=== PATIENT | female | born 1995 | race Caucasian/White ===

== ENCOUNTER 2016-12-19 20:49 | Emergency (ER) | payer MEDICAID, OTHER ==
[~2016-12-19] VITALS: Ht 147.3 cm; Wt 69.0 kg
[2016-12-19 20:51] VITALS: Ht 147.3 cm; Wt 69.0 kg
[2016-12-19] MEDS ORDERED: SOD CHLORIDE 0.9% 1,000 ML IV STA (23:28)
[2016-12-19] MEDS ORDERED: ONDANSETRON 4 MG INJ IV STA (23:28)
--- NOTE | 2016-12-19 23:54 | ERD ---
ER Documentation Chief Complaint Date/Time DATE: 12/19/16 TIME: 23:51 Chief Complaint pt reports 8 weeks preg and vomiting x 3 days HPI 21-year-old female presents in emergency department for complaints of vomiting episodes and diarrhea for 3 days. Patient is complaining of pelvic pain and cramping pain 4/10 scale, accompanying the episodes of vomiting and diarrhea. Patient had 3 episodes of vomiting 3 episodes of diarrhea. Patient does not have any blood in stool.. Patient did not have any vaginal bleeding. Patient is 3 para 1 1. Patient is approximately 8 weeks . Patient denies any hematuria or dysuria. ROS All systems reviewed and are negative except as per history of present illness. Medications Home Meds Active Scripts Cephalexin* (Keflex*) 500 Mg Capsule, 500 MG PO QID for 10 Days, CAP Prov:TOSHA LLOYD NP 12/20/16 Acetaminophen* (Tylophen*) 500 Mg Capsule, 1 CAP PO Q6H Y for PAIN AND OR ELEVATED TEMP, #20 CAP Prov:TOSHA LLOYD NP 12/20/16 Ondansetron (Ondansetron Odt) 4 Mg Tab.rapdis, 4 MG PO Q8 Y for NAUSEA AND/OR VOMITING, #30 TAB Prov:TOSHA LLOYD NP 12/20/16 Reported Medications [none] Unknown Strength No Conflict Check 12/19/16 Allergies Allergies: Coded Allergies: No Known Allergy (Verified Allergy, Unknown, NONE, 02/14/09) PMhx/Soc Medical and Surgical Hx: pt denies Medical Hx, pt denies Surgical Hx Hx Alcohol Use: No Hx Substance Use: No Hx Tobacco Use: No Smoking Status: Never smoker FmHx Family History: No coronary disease, No diabetes, No other Physical Exam Vitals Vital Signs Date Time Temp Pulse Resp B/P Pulse Ox O2 Delivery O2 Flow Rate FiO2 12/19/16 20:51 98.8 94 18 125/61 99 Physical Exam GENERAL: The patient is well developed and appropriate for usual state of health, in no apparent distress. CHEST: Clear to auscultation bilaterally. There are no rales, wheezes or rhonchi. HEART: Regular rate and rhythm. No murmurs, clicks, rubs or gallops. No S3 or S4. ABDOMEN: Soft, nontender and nondistended. hyperactive bowel sounds. No rebound or guarding. No gross peritonitis. No gross organomegaly or masses. No Garrido sign or McBurney point tenderness. BACK: No midline or flank tenderness. EXTREMITIES: Equal pulses bilaterally. There is no peripheral clubbing, cyanosis or edema. No focal swelling or erythema. Full range of motion. Grossly neurovascularly intact. NEURO: Alert and oriented. Cranial nerves 2-12 intact. Motor strength in all 4 extremities with 5/5 strength. Sensation grossly intact. Normal speech and gait. SKIN: There is no apparent rash or petechia. The skin is warm and dry. HEMATOLOGIC AND LYMPHATIC: There is no evidence of excessive bruising or lymphedema. No gross cervical, axillary, or inguinal lymphadenopathy. Result Diagram: 12/19/16235612/19/162356 Results 24 hrs Laboratory Tests Test 12/19/16 23:57 White Blood Count 11.110^3/ul Red Blood Count 4.3910^6/ul Hemoglobin 13.0g/dl Hematocrit 39.3% Mean Corpuscular Volume 89.5fl Mean Corpuscular Hemoglobin 29.6pg Mean Corpuscular Hemoglobin Concent 33.1g/dl Red Cell Distribution Width 13.0% Platelet Count 11926^3/UL Mean Platelet Volume 9.6fl Neutrophils % 68.8% Lymphocytes % 24.6% Monocytes % 4.6% Eosinophils % 1.5% Basophils % 0.2% Nucleated Red Blood Cells % 0.0/100WBC Neutrophils # (Manual) 7.710^3/ul Lymphocytes # 2.710^3/ul Monocytes # 0.510^3/ul Eosinophils # 0.210^3/ul Basophils # 0.010^3/ul Nucleated Red Blood Cells # 0.010^3/ul Urine Color STRAW Urine Clarity CLEAR Urine pH 6.0 Urine Specific [place] 1.005 Urine Ketones TRACEmg/dL Urine Nitrite NEGATIVEmg/dL Urine Bilirubin NEGATIVEmg/dL Urine Urobilinogen NEGATIVEmg/dL Urine Leukocyte Esterase 1+Audie/ul Urine Microscopic RBC 2/HPF Urine Microscopic WBC 1/HPF Urine Squamous Epithelial Cells FEW/HPF Urine Bacteria FEW/HPF Urine Hemoglobin NEGATIVEmg/dL Urine Glucose NEGATIVEmg/dL Urine Total Protein NEGATIVEmg/dl Sodium Level 135mmol/L Potassium Level 3.2mmol/L Chloride Level 99mmol/L Carbon Dioxide Level 26mmol/L Anion Gap 13 Blood Urea Nitrogen 7mg/dl Creatinine 0.51mg/dl Glucose Level 99mg/dl Calcium Level 9.3mg/dl Total Bilirubin 0.1mg/dl Direct Bilirubin 0.00mg/dl Indirect Bilirubin 0.1mg/dl Aspartate Amino Transf (AST/SGOT) 33IU/L Alanine Aminotransferase (ALT/SGPT) 59IU/L Alkaline Phosphatase 100IU/L Total Protein 7.4g/dl Albumin 4.1g/dl Globulin 3.30g/dl Albumin/Globulin Ratio 1.24 Beta HCG, Quantitative 352374.0mIU/ml Current Medications Medications (Trade) Dose Ordered Sig/Finn Route PRN Reason Start Time Stop Time Status Last Admin Dose Admin Sodium Chloride (NS) 1,000 ml @ 1,000 mls/hr Q1H STAT IV 12/19/16 23:28 12/20/16 00:27 DC 12/19/16 23:45 Ondansetron HCl 4 mg 4 mg ONCE STAT IV 12/19/16 23:28 12/19/16 23:29 DC 12/19/16 23:44 Ceftriaxone Sodium (Rocephin) 50 ml @ 100 mls/hr ONCE ONCE IVPB 12/20/16 02:00 12/20/16 02:31 DC 12/20/16 02:07 Patient was given Zofran here in the emergency department. After treatment, patient was able to tolerate po fluids here in the emergency department without any vomiting. There is no signs and symptoms of dehydration. Normal saline IV bolus was given here in emergency department for rehydration, patient tolerated IV fluids. IV rocephin was given here in the ER PROCEDURE: Obstetrical ultrasound. CLINICAL INDICATION: Pelvic pain. TECHNIQUE: Multiple sonographic images of the pelvis were obtained with transabdominal technique. Images were obtained with mathews scale and color Doppler. COMPARISON: No prior studies are available for comparison. FINDINGS: The uterus is well visualized and measures 12.3 x 7.1 x 7.5 cm. There is an intrauterine gestational sac with a pole identified. heart tones of 168 beats per minute are identified. The crown-rump length averages 1.71 cm, compatible with 8 weeks and 1 day. The mean sac diameter averages 3.75 cm, compatible with 9 weeks and 1 day. A yolk sac is identified. No subchorionic collection is identified. There is no pelvic free fluid. Bilateral ovaries are not visualized. There is no suspicious adnexal mass identified. IMPRESSION: Single live intrauterine with an estimated gestational age of 8 weeks and 1 day, with an ultrasound LITO of 07/30/2017. Bilateral ovaries not visualized. .Bon Mejias MD, MD Date Time Electronically viewed and signed by .Bon Mejias MD, MD on 12/20/2016 01:44 .T/ CC: TOSHA LLOYD PHILATELIC CONSULTANT Procedures/MDM Medical Decision Making: Symptoms of vomiting diarrhea or abdominal pain most likely consistent with viral gastroenteritis. Patient also has urinary tract infection and will be treated. IV Rocephin is given here in emergency department. Patient's intrauterine stable this time at 8 weeks with good heartbeat. No symptoms of any subchorionic hemorrhage. There is low suspicion for abdominal emergencies at this time. Patients abdominal exam is normal at this time. Patients radiology exam does not show any abdominal emergencies at this time. There is low suspicion for appendicitis, cholecystitis , abdominal aortic aneurysms or peritonitis at this time. There is low suspicion for sepsis. Patient appears well and is hemodynamically stable. Disposition: Home. Condition: Stable Prescription Zofran Tylenol Keflex Instructions: Patient is advised to take medications as prescribed. Patient is advised to rest, increase fluid intake and do brat diet for next 1-2 days and progress as tolerated. Patient is advised that if symptoms are worse, severe abdominal pain, uncontrolled vomiting, high fever, severe flank pain, worst signs and symptoms, to return to the emergency department immediately. Otherwise, patient can follow up with primary care doctor in 5-7 days. Departure Diagnosis: Primary Impression: Viral gastroenteritis Additional Impressions: UTI (urinary tract infection) Urinary tract infection type: acute cystitis Hematuria presence: without hematuria Qualified Code: N30.00 - Acute cystitis without hematuria Intrauterine Condition: Stable Patient Instructions: Gastroenteritis, Viral (6Y-Adult), Understanding Urinary Tract Infections (UTIs) Additional Instructions: Patient is advised to take medications as prescribed. Patient is advised to rest , increase fluid intake and do brat diet for next 1-2 days and progress as tolerated. Patient is advised that if symptoms are worse, severe abdominal pain , uncontrolled vomiting, high fever, severe flank pain, worst signs and symptoms , to return to the emergency department immediately. Otherwise, patient can follow up with primary care doctor in 5-7 days. TOSHA LLOYD. JONE Dec 19, 2016 23:54
[2016-12-20 00:49] LABS: BASOPHILS % 0.2 % (0.0-2.0); EOSINOPHILS # 0.2 10^3/ul (0.0-0.5); EOSINOPHILS % 1.5 % (0.0-7.0); HEMATOCRIT 39.3 % (37.0-47.0); LYMPHOCYTES # 2.7 10^3/ul (0.8-2.9); LYMPHOCYTES % 24.6 % (15.0-51.0); MEAN CORPUSCULAR HEMOGLOBIN 29.6 pg (29.0-33.0); MEAN CORPUSCULAR HGB CONC 33.1 g/dl (32.0-37.0); MEAN CORPUSCULAR VOLUME 89.5 fl (82.0-101.0); MEAN PLATELET VOLUME 9.6 fl (7.4-10.4); MONOCYTE # 0.5 10^3/ul (0.3-0.9); MONOCYTES % 4.6 % (0.0-11.0); NEUTROPHILS % 68.8 % (39.0-77.0); PLATELET COUNT 345 10^3/UL (140-415); RED BLOOD COUNT 4.39 10^6/ul (4.20-5.40); WHITE BLOOD COUNT 11.1 10^3/ul (4.8-10.8)
[2016-12-20 01:07] LABS: ALBUMIN 4.1 g/dl (3.3-4.9); ALBUMIN/GLOBULIN RATIO 1.24; BILIRUBIN,INDIRECT 0.1 mg/dl (0-1.1); BILIRUBIN,TOTAL 0.1 mg/dl (0.2-1.3); CALCIUM 9.3 mg/dl (8.4-10.2); CREATININE 0.51 mg/dl (0.44-1.00); POTASSIUM 3.2 mmol/L (3.5-5.1); TOTAL PROTEIN 7.4 g/dl (6.1-8.1)
[2016-12-20 01:21] LABS: ADD UMIC YES; UR ASCORBIC ACID NEGATIVE (NEGATIVE); UR BACTERIA FEW /HPF (NONE SEEN); UR BILIRUBIN (Dip) NEGATIVE (NEGATIVE); UR BLOOD (Dip) NEGATIVE (NEGATIVE); UR CLARITY CLEAR (CLEAR); UR COLOR STRAW (YELLOW); UR GLUCOSE (Dip) NEGATIVE (NEGATIVE); UR KETONES (Dip) TRACE mg/dL (NEGATIVE); UR LEUKOCYTE ESTERASE (Dip) 1+ Leu/ul (NEGATIVE); UR NITRITE (Dip) NEGATIVE (NEGATIVE); UR RBC 2 /HPF (0-5); UR SPECIFIC GRAVITY (Dip) 1.005 (1.003-1.030); UR SQUAMOUS EPITHELIAL CELL FEW /HPF (FEW); UR TOTAL PROTEIN (Dip) NEGATIVE (NEGATIVE); UR UROBILINOGEN (Dip) NEGATIVE (NEGATIVE)
--- NOTE | 2016-12-20 01:45 | RADRPT ---
PROCEDURE: Obstetrical ultrasound. CLINICAL INDICATION: Pelvic pain. TECHNIQUE: Multiple sonographic images of the pelvis were obtained with transabdominal technique. Images were obtained with mathews scale and color Doppler. COMPARISON: No prior studies are available for comparison. FINDINGS: The uterus is well visualized and measures 12.3 x 7.1 x 7.5 cm. There is an intrauterine gestationa l sac with a pole identified. heart tones of 168 beats per minute are identified. The fe mar crown-rump length averages 1.71 cm, compatible with 8 weeks and 1 day. The mean sac diameter ave rages 3.75 cm, compatible with 9 weeks and 1 day. A yolk sac is identified. No subchorionic collecti on is identified. There is no pelvic free fluid. Bilateral ovaries are not visualized. There is no suspicious adnexal mass identified. IMPRESSION: Single live intrauterine with an estimated gestational age of 8 weeks and 1 day, with an u ltrasound LITO of 07/30/2017. Bilateral ovaries not visualized. .Bon Mejias MD, MD Date Time Electronically viewed and signed by .Bon Mejias MD, MD on 12/20/2016 01:44 .T/
[2016-12-20] MEDS ORDERED: CEPH-443 PO (01:55)
[2016-12-20] MEDS ORDERED: ACET500C5 PO (01:55)
[2016-12-20] MEDS ORDERED: ONDA4TAB14 PO (01:55)
[2016-12-20] MEDS ORDERED: CEFTRIAXONE 1 GM/50 ML (PMX) 50 ML IVPB ONE (02:00)
== END 2016-12-20 03:02 | disposition home or self-care (01) ==
LOC: FTE 20:49
DX: O98.511 Other viral diseases complicating pregnancy, first trimester (principal); A08.4 Viral intestinal infection, unspecified; O23.11 Infections of bladder in pregnancy, first trimester; R10.2 Pelvic and perineal pain; Z3A.09 9 weeks gestation of pregnancy
CPT/HCPCS: 36415; 76801; 80053; 81001; 84702; 85025; 86900; 86901; 96374; 96375; J0696; J2405; J7030; Z7502

== ENCOUNTER 2017-06-19 15:27 | Outpatient (CLI) | END 2017-06-20 01:47 | disposition home or self-care (01) ==

== ENCOUNTER 2017-07-16 01:45 | Emergency (ER) | END 2017-07-16 18:17 | disposition left against medical advice (07) ==

== ENCOUNTER → 2017-07-16 | Outpatient (CLI) | END | disposition home or self-care (01) ==

== ENCOUNTER 2017-07-17 18:56 | Inpatient (IN) | END 2017-07-20 16:40 | disposition home or self-care (01) | DRG 775 ==

== ENCOUNTER 2018-05-11 18:29 | Emergency (ER) | payer SELFPAY ==
[~2018-05-11] VITALS: Ht 152.4 cm; Wt 79.9 kg
[~2018-05-11 18:29] MED LIST: ACET500C5 PO; PREN-93 PO
[2018-05-11 18:30] VITALS: Ht 152.4 cm; Wt 79.9 kg
[2018-05-11] MEDS ORDERED: LIDOCAINE/MYLANTA 40 ML BTL PO STA (20:08)
[2018-05-11] MEDS ORDERED: ONDANSETRON 4 MG INJ IV STA (20:08)
[2018-05-11] MEDS ORDERED: BELLADONNA/PHENOBARBITAL TAB PO STA (20:08)
[2018-05-11] MEDS ORDERED: FAMOTIDINE 20 MG INJ IV STA (20:08)
[2018-05-11] MEDS ORDERED: SOD CHLORIDE 0.9% 1,000 ML IV STA (20:08)
[2018-05-11] MEDS ORDERED: UDMYL PO (21:04)
[2018-05-11] MEDS ORDERED: FAMO40TA5 PO (21:04)
--- NOTE | 2018-05-11 21:07 | ERD ---
ER Documentation Chief Complaint Chief Complaint Pt c/o lower abd pain radiating to back since AM, nausea, menses x 1 month HPI This is a 23-year-old female who presents with epigastric pain that radiates to both the left upper quadrant and right upper quadrant. This is been going on since today and is worse after she eats. She has nausea but no vomiting. She also has an Implanon control and states that since she had that placed about 3 months ago she has been having spotting. No dysuria hematuria or frequency. ROS All systems reviewed and are negative except as per history of present illness. Medications Home Meds Active Scripts Magaldrate/Simethicone* (Mag-Al Plus Suspension*) 30 Ml Oral.susp, 30 ML PO Q6H PRN for GASTROINTESTINAL UPSET, #120 ML Prov:EMILY MCDERMOTT PA-C 05/11/18 Famotidine* (Famotidine*) 40 Mg Tablet, 40 MG PO BID, #30 TAB Prov:EMILY MCDERMOTT PA-C 05/11/18 Acetaminophen* (Tylophen*) 500 Mg Capsule, 1 CAP PO Q6H PRN for PAIN AND OR ELEVATED TEMP, #20 CAP Prov:TOSHA LLOYD FAC ENGINEER 12/20/16 Reported Medications Vit No.124/Iron/FA ( Vitamin Tablet) 1 Each Tablet, 1 EACH PO, TAB 07/17/17 Allergies Allergies: Coded Allergies: No Known Allergy (Verified , NONE, 07/17/17) PMhx/Soc Medical and Surgical Hx: pt denies Medical Hx, pt denies Surgical Hx History of Surgery: No Anesthesia Reaction: No Hx Neurological Disorder: No Hx Respiratory Disorders: No Hx Cardiac Disorders: No Hx Psychiatric Problems: No Hx Miscellaneous Medical Probl: No Hx Alcohol Use: No Hx Substance Use: No Hx Tobacco Use: No Smoking Status: Never smoker FmHx Family History: No diabetes Physical Exam Vitals Vital Signs Date Temp Pulse Resp B/P (MAP) Pulse Ox O2 O2 Flow FiO2 Time Delivery Rate 05/11/18 99.5 93 16 131/90 99 18:30 (104) Physical Exam INITIAL VITAL SIGNS: Reviewed by me GENERAL: Awake, alert and oriented x 4, well appearing, nontoxic, speaking in full sentences. No acute distress HEAD: Atraumatic NECK: Supple. No masses. Full range of motion. No meningismus. No midline tenderness. RESPIRATORY: Clear to auscultation bilaterally. Symmetric chest wall rise. No wheezing or rales. No accessory muscle use. CV: Regular rate and rhythm. No murmurs, rubs, or gallops. ABDOMEN: Soft, non-distended. Nontender. Negative Diablo. Negative McBurneys point tenderness. No CVA tenderness bilaterally. No guarding. No rebound. : Deffered. Result Diagram: 05/11/18201705/11/182017 Results 24 hrs Laboratory Tests Test 05/11/18 20:18 White Blood Count 10.8 10^3/ul Red Blood Count 4.58 10^6/ul Hemoglobin 13.5 g/dl Hematocrit 41.1 % Mean Corpuscular Volume 89.7 fl Mean Corpuscular Hemoglobin 29.5 pg Mean Corpuscular Hemoglobin Concent 32.8 g/dl Red Cell Distribution Width 12.9 % Platelet Count 334 10^3/UL Mean Platelet Volume 9.2 fl Immature Granulocytes % 0.200 % Neutrophils % 58.8 % Lymphocytes % 33.9 % Monocytes % 5.0 % Eosinophils % 1.8 % Basophils % 0.3 % Nucleated Red Blood Cells % 0.0 /100WBC Immature Granulocytes # 0.020 10^3/ul Neutrophils # 6.3 10^3/ul Lymphocytes # 3.7 10^3/ul Monocytes # 0.5 10^3/ul Eosinophils # 0.2 10^3/ul Basophils # 0.0 10^3/ul Nucleated Red Blood Cells # 0.0 10^3/ul Urine Color YELLOW Urine Clarity CLOUDY Urine pH 7.0 Urine Specific [place] 1.019 Urine Ketones NEGATIVE mg/dL Urine Nitrite NEGATIVE mg/dL Urine Bilirubin NEGATIVE mg/dL Urine Urobilinogen NEGATIVE mg/dL Urine Leukocyte Esterase TRACE Audie/ul Urine Microscopic RBC 3 /HPF Urine Microscopic WBC 1 /HPF Urine Squamous Epithelial Cells FEW /HPF Urine Amorphous Crystals FEW /HPF Urine Hemoglobin 2+ mg/dL Urine Glucose NEGATIVE mg/dL Urine Total Protein NEGATIVE mg/dl Sodium Level 141 mmol/L Potassium Level 4.1 mmol/L Chloride Level 101 mmol/L Carbon Dioxide Level 30 mmol/L Anion Gap 10 Blood Urea Nitrogen 12 mg/dl Creatinine 0.56 mg/dl Est Glomerular Filtrat Rate mL/min > 60 mL/min Glucose Level 104 mg/dl Calcium Level 9.7 mg/dl Total Bilirubin 0.0 mg/dl Direct Bilirubin 0.00 mg/dl Indirect Bilirubin 0.0 mg/dl Aspartate Amino Transf (AST/SGOT) 22 IU/L Alanine Aminotransferase (ALT/SGPT) 22 IU/L Alkaline Phosphatase 128 IU/L Total Protein 7.7 g/dl Albumin 4.5 g/dl Globulin 3.20 g/dl Albumin/Globulin Ratio 1.40 Lipase 55 U/L POC Beta HCG, Qualitative NEGATIVE Current Medications Medications Dose Sig/Finn Start Time Status Last (Trade) Ordered Route PRN Stop Time Admin Dose Reason Admin Sodium 1,000 ml @ Q1H STAT 05/11/18 05/11/18 Chloride 1,000 mls/hr IV 20:08 20:15 05/11/18 21:07 Ondansetron 4 mg ONCE STAT 05/11/18 DC 05/11/18 HCl (Zofran IV 20:08 20:15 Inj) 05/11/18 20:09 Famotidine 20 mg ONCE STAT 05/11/18 DC 05/11/18 (Pepcid Iv) IV 20:08 20:15 05/11/18 20:09 40 ml ONCE STAT 05/11/18 DC 05/11/18 Miscellaneous PO 20:08 20:15 Medication 05/11/18 20:09 (Gi Cocktail (2)) Belladonna/ 2 tab ONCE STAT 05/11/18 DC 05/11/18 Phenobarbital PO 20:08 20:14 () 05/11/18 20:09 Procedures/MDM The differential diagnosis includes but is not limited to appendicitis, cholelithiasis, cholecystitis, pancreatitis, hepatitis, gastritis, peptic ulcer disease, bowel obstruction, diverticulitis, renal disease including stones, torsion, AAA, pyelonephritis, and others. Laboratory analysis shows no evidence of acute emergent abnormality. No evidence of significant leukocytosis suggesting systemic infection or severe anemia. No evidence of acute renal or liver failure, no evidence of severe alkalosis or acidosis. Gallbladder ultrasound is negative. Patient discharged with Mylanta and Pepcid. She was counseled on avoiding spicy greasy and fatty foods. Patient counseled regarding my diagnostic impression and care plan. Prior to discharge all questions an swered. Pt agrees with treatment plan and understands strict return precautions. Pt is instructed to follow up with primary care provider within 24-48 hours. Precautionary instructions provided including instructions to return to the ER if not improving or for any worsening or changing symptoms or concerns. Departure Diagnosis: Primary Impression: Abdominal pain Condition: Stable Patient Instructions: Abdominal Pain Additional Instructions: Llame al doctor RAKESH y aleksandra eden MARILYN PARA DENTRO DE 1-2 MOSLEY.Dgale a la secretaria que nosotros le instruimos hacer esta marilyn.Avise o llame si jones condicin se empeora antes de la marilyn. Regresa aqui si peor o no mejor. EMILY MCDERMOTT PA-C May 11, 2018 21:07
[2018-05-11 21:18] VITALS: BP 123/78; PULSE 67; RESP 15
== END 2018-05-11 21:18 | disposition home or self-care (01) ==
LOC: FTE 18:29
DX: R10.13 Epigastric pain (principal); R40.2252 Coma scale, best verbal response, oriented, at arrival to emergency department; R40.2362 Coma scale, best motor response, obeys commands, at arrival to emergency department; R40.2142 Coma scale, eyes open, spontaneous, at arrival to emergency department; R11.0 Nausea
CPT/HCPCS: 36415; 76705; 80053; 81001; 81025; 83690; 85025; 96374; 96375; 99285; J2405; J7030